=== PATIENT | female | born 1980 | race Caucasian/White ===

== ENCOUNTER 2016-11-01 13:43 | Emergency (ER) | payer OTHER ==
[~2016-11-01] VITALS: Ht 170.2 cm; Wt 140.6 kg
[2016-11-01 15:45] VITALS: BP 128/70
[2016-11-01] MEDS ORDERED: DULO60CA7 PO (15:52)
[2016-11-01] MEDS ORDERED: RIZA5TAB2 PO (15:52)
[2016-11-01] MEDS ORDERED: ATEN100T PO (15:52)
[2016-11-01] MEDS ORDERED: ALPR1TAB2 PO (15:52)
[2016-11-01] MEDS ORDERED: OMEP40CA6 PO (15:52)
[2016-11-01] MEDS ORDERED: OXYC-302 PO (15:52)
[2016-11-01] MEDS ORDERED: METF10002 PO (15:52)
[2016-11-01] MEDS ORDERED: DULA0.75 SC (15:52)
[2016-11-01] MEDS ORDERED: PREG100C PO (15:52)
[2016-11-01] MEDS ORDERED: TRAZ50TA18 PO (15:52)
== END 2016-11-01 16:28 | disposition home or self-care (01) ==
LOC: ED 14:19
DX: T42.6X5A Adverse effect of other antiepileptic and sedative-hypnotic drugs, initial encounter (principal); R45.851 Suicidal ideations; Y92.89 Other specified places as the place of occurrence of the external cause; G43.909 Migraine, unspecified, not intractable, without status migrainosus
CPT/HCPCS: 99283